=== PATIENT | female | born 1985 | race African-American/Black ===

== ENCOUNTER 2016-09-08 01:18 | Emergency (ER) | payer MEDICARE ==
[~2016-09-08 01:18] MED LIST: IBUP-1060 PO; IBUP200T43 PO; METR500T PO; PREN1TAB58 PO
[2016-09-08 01:24] VITALS: BP 140/88
[2016-09-08] MEDS ORDERED: ONDANSETRON ODT 4 MG TAB.RAPDIS ONE (01:28)
[2016-09-08] MEDS ORDERED: ONDANSETRON ODT 4 MG TAB.RAPDIS PO ONE (01:45)
[2016-09-08 02:47] LABS: BILIRUBIN,URINE NEGATIVE (NEG); GLUCOSE,URINE NEGATIVE (NEG); NITRITE,URINE NEGATIVE (NEG); PROTEIN,URINE NEGATIVE (NEG-TRACE); UROBILINOGEN,URINE 0.2 mg/dL (0.2 mg/dL)
[2016-09-08 02:48] LABS: NEG OBC UR NEG; POS OBC UR POS
[2016-09-08 02:53] LABS: BACTERIA,URINE 0 /HPF (0-FEW); RBC,URINE 0 /HPF (0-2); SQUAMOUS EPITHELIAL CELL,UR FEW /LPF; WBC,URINE OCC /HPF (0-4)
[2016-09-08 02:59] LABS: BARBITURATES NEG (NEG); BENZODIAZEPINES NEG (NEG); CANNABINOIDS POS (NEG); COCAINE NEG (NEG); METHADONE NEG (NEG); OPIATES NEG (NEG); PHENCYCLIDINE NEG (NEG)
[2016-09-08 03:00] LABS: ETHANOL, URINE NEG (NEG)
--- NOTE | 2016-09-08 03:14 | PHYS DOC ---
Past Medical History Past Medical History: Other Additional Past Medical Histor: genital herpes,enlarged liver,HEART MURMUR,HPV, ectopic , psychosis Past Surgical History: Other Additional Past Surgical Histo: GENITAL WARTS REMOVED, ectopic preg surgery Alcohol Use: Occasionally Drug Use: None Adult General Chief Complaint Chief Complaint: ABSCESS HPI HPI 30 yo female presenting with a variety of complaints who is at an estimated 14 weeks gestation who presents with some mild labial swelling and yeast like discharge that has been present for weeks to months. She denies any fever or chills. She denies any vaginal bleeding or discharge. She denies any abdominal pain. She denies any chest pain or SOB. Review of Systems Review of Systems Constitutional: Denies fever or chills [] Eyes: Denies change in visual acuity, redness, or eye pain [] HENT: Denies nasal congestion or sore throat [] Respiratory: Denies cough or shortness of breath [] Cardiovascular: No additional information not addressed in HPI [] GI: Denies abdominal pain, nausea, vomiting, bloody stools or diarrhea [] : Denies dysuria or hematuria [] Musculoskeletal: Denies back pain or joint pain [] Integument: Denies rash or skin lesions [] Neurologic: Denies headache, focal weakness or sensory changes [] Endocrine: Denies polyuria or polydipsia [] Current Medications Current Medications Current Medications Medications (Trade) Dose Ordered Sig/Salome Start Time Stop Time Status Last Admin Dose Admin Ondansetron HCl (Zofran Odt) 4 mg 1X ONCE 09/08/16 01:45 09/08/16 01:46 DC 09/08/16 01:41 4 MG Allergies Allergies Allergies Coded Allergies Type Severity Reaction Last Updated Verified dextrose Adverse Reaction Intermediate nausea and vomiting 08/10/15 Yes fructose Adverse Reaction Intermediate nausea and vomiting 08/10/15 Yes metronidazole Adverse Reaction Intermediate Nausea and Vomiting 10/03/14 No promethazine Adverse Reaction Intermediate nausea 10/03/14 No Physical Exam Physical Exam Constitutional: Well developed, well nourished, no acute distress, non-toxic appearance. [] HENT: Normocephalic, atraumatic, bilateral external ears normal, oropharynx moist, no oral exudates, nose normal. [] Eyes: PERRLA, EOMI, conjunctiva normal, no discharge. [] Neck: Normal range of motion, no tenderness, supple, no stridor. [] Cardiovascular:Heart rate regular rhythm, no murmur [] Lungs & Thorax: Bilateral breath sounds clear to auscultation [] Abdomen: Bowel sounds normal, soft, no tenderness, no masses, no pulsatile masses. [] Skin: Warm, dry, no erythema, no rash. [] : Mild amount of labial swelling but no fluctuance or obvious abscess formation, there is minimal yeast seen, external view only Back: No tenderness, no CVA tenderness. [] Extremities: No tenderness, no cyanosis, no clubbing, ROM intact, no edema. [] Neurologic: Alert and oriented X 3, normal motor function, normal sensory function, no focal deficits noted. [] Psychologic: Affect normal, judgement normal, mood normal. [] Current Patient Data Vital Signs Vital Signs Date Time Temp Pulse Resp B/P Pulse Ox O2 Delivery O2 Flow Rate FiO2 09/08/16 01:24 98.1 88 18 98 Room Air 98.1 Lab Values Laboratory Tests Test 09/08/16 02:35 Urine Collection Type Unknown Urine Color Yellow Urine Clarity Clear Urine pH 6.0 Urine Specific [place] 1.020 Urine Protein Negativemg/dL (NEG-TRACE) Urine Glucose (UA) Negativemg/dL (NEG) Urine Ketones (Stick) Negativemg/dL (NEG) Urine Blood Negative (NEG) Urine Nitrite Negative (NEG) Urine Bilirubin Negative (NEG) Urine Urobilinogen Dipstick 0.2mg/dL (0.2 mg/dL) Urine Leukocyte Esterase Negative (NEG) Urine RBC 0/HPF (0-2) Urine WBC Occ/HPF (0-4) Urine Squamous Epithelial Cells Few/LPF Urine Bacteria 0/HPF (0-FEW) Urine Mucus Mod/LPF Urine Test Positive (NEG) Urine Opiates Screen Neg (NEG) Urine Methadone Screen Neg (NEG) Urine Barbiturates Neg (NEG) Urine Phencyclidine Screen Neg (NEG) Urine Amphetamine/Methamphetamine Neg (NEG) Urine Benzodiazepines Screen Neg (NEG) Urine Cocaine Screen Neg (NEG) Urine Cannabinoids Screen Pos (NEG) Urine Ethyl Alcohol Neg (NEG) EKG EKG [] Radiology/Procedures Radiology/Procedures Informal bedside ultrasound demonstrated a viable IUP with good motion and heartbeat. Course & Med Decision Making Course & Med Decision Making Pertinent Labs and Imaging studies reviewed. (See chart for details) This 30-year-old female with known psychiatric issues presents with a variety of vaginal complaints. Ultimately her vaginal exam did not reveal any acute issues. Urinalysis was negative for any signs of infection. Her tox screen was negative. I'll be discharging her with strict instruction follow-up with her OB doctor in the next several days for her ongoing issues and for her . Dragon Disclaimer Dragon Disclaimer This electronic medical record was generated, in whole or in part, using a voice recognition dictation system. Departure Departure Impression: Primary Impression: Vaginal discharge Additional Impression: Swelling of labia Disposition: 01 HOME, SELF-CARE Admitting Physician: Other Condition: STABLE Referrals: NO PCP (PCP) Patient Instructions: Additional Instructions: Please follow up closely with your OBGYN in the next 2-3 days for your . Return to the ER if you develop any worsening of your symptoms. Problem Qualifiers PETE LAYNE DO Sep 08, 2016 03:14
== END 2016-09-08 03:30 | disposition home or self-care (01) ==
LOC: ER 01:18
DX: O99.89 Other specified diseases and conditions complicating pregnancy, childbirth and the puerperium (principal); N89.8 Other specified noninflammatory disorders of vagina; R22.2 Localized swelling, mass and lump, trunk; R16.0 Hepatomegaly, not elsewhere classified; Z3A.14 14 weeks gestation of pregnancy; Z88.1 Allergy status to other antibiotic agents; Z88.8 Allergy status to other drugs, medicaments and biological substances
CPT/HCPCS: 81001; 81025; 99285; G0481; Q0162; 99284

== ENCOUNTER 2016-09-13 22:08 | Emergency (ER) | payer MEDICARE ==
[~2016-09-13] VITALS: Ht 157.5 cm; Wt 74.8 kg
[2016-09-13 22:31] VITALS: BP 121/70
[2016-09-13] MEDS ORDERED: ERYT1OIN6 OS (23:11)
--- NOTE | 2016-09-13 23:12 | PHYS DOC ---
Past Medical History Past Medical History: Other Additional Past Medical Histor: genital herpes,enlarged liver,HEART MURMUR,HPV, ectopic , psychosis Past Surgical History: Other Additional Past Surgical Histo: GENITAL WARTS REMOVED, ectopic preg surgery Smokin Pack Per Day Alcohol Use: Occasionally Drug Use: Marijuana Adult General Chief Complaint Chief Complaint: EYE PROBLEMS [facility] HPI Patient is a 30 year old female with history of psychiatric problems who presents with report of left eye stye as well as other bizarre complaints. She states that the stye has caused drainage from the eye without matting, vision changes, or fever. The rest of her complaints appear to be chronic or unfounded. She states that the great toe of her right foot "has rod in it after kicking the rod tray when I fell off the bar stool in 2009." She believes her toe has spread pain to the rest of her body. She does not have a PCP. Review of Systems Review of Systems Constitutional: Denies fever or chills. [] Eyes: Denies change in visual acuity, redness, or eye pain. Reports left eye stye. HENT: Denies ear pain, nasal congestion or sore throat. [] Respiratory: Denies cough or shortness of breath. [] Cardiovascular: Denies chest pain, palpitations or edema. [] GI: Denies abdominal pain, nausea, vomiting, bloody stools or diarrhea. [] : Denies dysuria, hematuria or urinary frequency. [] Musculoskeletal: Denies back pain or joint pain. Reports right great toe pain, chronic. Integument: Denies rash or skin lesions. [] Neurologic: Denies headache, focal weakness or sensory changes. [] Endocrine: Denies polyuria or polydipsia. [] Psych: Denies anxiety or depression. [] All systems reviewed and negative unless otherwise stated in the HPI. Allergies Allergies Allergies Coded Allergies Type Severity Reaction Last Updated Verified NSAIDS (Non-Steroidal Anti-Inflamma Allergy Unknown 09/13/16 Yes Penicillins Allergy Unknown 09/13/16 Yes clindamycin Allergy Unknown 09/13/16 Yes dextrose Adverse Reaction Intermediate nausea and vomiting 08/10/15 Yes fructose Adverse Reaction Intermediate nausea and vomiting 08/10/15 Yes metronidazole Adverse Reaction Intermediate Nausea and Vomiting 10/03/14 No promethazine Adverse Reaction Intermediate nausea 10/03/14 No Physical Exam Physical Exam Constitutional: Well developed, well nourished, no acute distress, non-toxic appearance. [] HENT: Normocephalic, atraumatic, bilateral external ears normal, oropharynx moist, no oral exudates, nose normal. [] Eyes: PERRLA, EOMI, conjunctiva normal, no discharge. There is an internal hordeolum of the left upper eyelid without conjunctival injection or drainage. Skin: Warm, dry, no erythema, no rash. There is no laceration, abrasion, ecchymosis, or other external signs of injury of the right foot. There is onychomycosis of the great toenail on the right foot. Extremities: No tenderness, no cyanosis, no clubbing, ROM intact, no edema. [] Neurologic: Alert and oriented X 3, normal motor function, normal sensory function, no focal deficits noted. [] Psychologic: Bizarre affect with schizoid tendency, mood normal. [] Current Patient Data Vital Signs Vital Signs Date Time Temp Pulse Resp B/P Pulse Ox O2 Delivery O2 Flow Rate FiO2 09/13/16 22:31 98.4 83 18 100 Room Air 98.4 EKG EKG [] Radiology/Procedures Radiology/Procedures [] Course & Med Decision Making Course & Med Decision Making Pertinent Labs and Imaging studies reviewed. (See chart for details) [] Dragon Disclaimer Dragon Disclaimer This electronic medical record was generated, in whole or in part, using a voice recognition dictation system. Departure Departure Impression: Primary Impression: Hordeolum internum left upper eyelid Disposition: 01 HOME, SELF-CARE Condition: STABLE Referrals: NO PCP (PCP) Patient Instructions: Sty Additional Instructions: Please use the prescribed antibiotic ointment as directed. Please follow up with the eye doctor listed below if you have any worsening of your eye. Return to the emergency department if you have any new or concerning symptoms. Scripts Erythromycin Base (Erythromycin)3.5 Gm Oint...g.1 Noe OS BID 7 Days Prov:KAREN SAAVEDRA 09/13/16 KAREN SAAVEDRA Sep 13, 2016 23:11
== END 2016-09-13 23:18 | disposition home or self-care (01) ==
LOC: ER 22:08
DX: H00.024 Hordeolum internum left upper eyelid (principal); B35.1 Tinea unguium; G89.29 Other chronic pain; F12.10 Cannabis abuse, uncomplicated; F17.210 Nicotine dependence, cigarettes, uncomplicated; R16.0 Hepatomegaly, not elsewhere classified; Z88.6 Allergy status to analgesic agent; Z88.1 Allergy status to other antibiotic agents; Z88.0 Allergy status to penicillin; Z88.8 Allergy status to other drugs, medicaments and biological substances
CPT/HCPCS: 99283

== ENCOUNTER 2016-10-25 20:08 | Emergency (ER) | payer MEDICARE ==
[~2016-10-25] VITALS: Ht 152.4 cm; Wt 79.4 kg
[~2016-10-25 20:08] MED LIST changes: +ERYT1OIN6 OS
[2016-10-25 20:24] VITALS: BP 113/61
--- NOTE | 2016-10-25 21:29 | PHYS DOC ---
Past Medical History Past Medical History: Other Additional Past Medical Histor: genital herpes,enlarged liver,HEART MURMUR,HPV, ectopic , psychosis Past Surgical History: Other Additional Past Surgical Histo: GENITAL WARTS REMOVED, ectopic preg surgery Alcohol Use: None Drug Use: None, Marijuana Adult General Chief Complaint Chief Complaint: VAGINAL PROBLEM HPI HPI Patient is a 30 year old female with complaint of an abscess in her private area that been present for at least a week. Patient states is been draining for the past 2-3 days. Patient states that she has not she denies any other region quite some time. Patient denies history of recurring skin infections. She denies antibiotic use within the past 30 days. Patient is . She reports that she's approximate 17 weeks . She states that she is due to see her tutorial laboratory supervisor at [facility] tomorrow. Patient denies pelvic pain, abdominal pain, vaginal bleeding, vaginal discharge or dysuria. Review of Systems Review of Systems Constitutional: Denies fever or chills [] Eyes: Denies change in visual acuity, redness, or eye pain [] HENT: Denies nasal congestion or sore throat [] Respiratory: Denies cough or shortness of breath [] Cardiovascular: No additional information not addressed in HPI [] GI: Denies abdominal pain, nausea, vomiting, bloody stools or diarrhea [] : Denies dysuria or hematuria [] Musculoskeletal: Denies back pain or joint pain [] Integument: Denies rash or skin lesions [] Neurologic: Denies headache, focal weakness or sensory changes [] Endocrine: Denies polyuria or polydipsia [] Current Medications Current Medications Current Medications Medications (Trade) Dose Ordered Sig/[facility] Start Time Stop Time Status Last Admin Dose Admin Lidocaine/Sodium Bicarbonate (Buffered Lidocaine 1%) 20 ml STK-MED ONCE 10/25/16 21:31 10/25/16 21:32 DC Allergies Allergies Allergies Coded Allergies Type Severity Reaction Last Updated Verified NSAIDS (Non-Steroidal Anti-Inflamma Allergy Unknown 09/13/16 Yes Penicillins Allergy Unknown 09/13/16 Yes clindamycin Allergy Unknown 09/13/16 Yes dextrose Adverse Reaction Intermediate nausea and vomiting 08/10/15 Yes fructose Adverse Reaction Intermediate nausea and vomiting 08/10/15 Yes metronidazole Adverse Reaction Intermediate Nausea and Vomiting 10/03/14 No promethazine Adverse Reaction Intermediate nausea 3/20/15 No Physical Exam Physical Exam Constitutional: Well developed, well nourished, no acute distress, non-toxic appearance. [] HENT: Normocephalic, atraumatic, bilateral external ears normal, oropharynx moist, no oral exudates, nose normal. [] Eyes: PERRLA, EOMI, conjunctiva normal, no discharge. [] Neck: Normal range of motion, no tenderness, supple, no stridor. [] Cardiovascular:Heart rate regular rhythm, no murmur [] Lungs & Thorax: Bilateral breath sounds clear to auscultation [] Abdomen: Bowel sounds normal, soft, no tenderness, no masses, no pulsatile masses. Abdomen is gravid. heart tones were 152. Patient has a cutaneous abscess lateral to her right labia majora. It appears to be due to hypertrophic boiler sweat glands in the area. It is opened minimally with active mucopurulent drainage. There is no palpable sinus tracts. There is no swelling to the labia majora or minora. Skin: Warm, dry, no erythema, no rash. [] Back: No tenderness, no CVA tenderness. [] Extremities: No tenderness, no cyanosis, no clubbing, ROM intact, no edema. [] Neurologic: Alert and oriented X 3, normal motor function, normal sensory function, no focal deficits noted. [] Psychologic: Affect normal, judgement normal, mood normal. [] Current Patient Data Vital Signs Vital Signs Date Time Temp Pulse Resp B/P Pulse Ox O2 Delivery O2 Flow Rate FiO2 10/25/16 20:24 99.5 82 16 99 Room Air 99.5 EKG EKG [] Radiology/Procedures Radiology/Procedures Procedure note: 1.5 cm indurated cutaneous abscess to the right labia majora was anesthetized with buffered 1% lidocaine. Site was prepped with Betadine. Abscess was incised with 11 blade scalpel with immediate expression of mucopurulent material. Abscess was compressed until there is no longer mucopurulent drainage. Abscess was packed with quarter-inch packing. Patient tolerated the procedure well. Course & Med Decision Making Course & Med Decision Making Pertinent Labs and Imaging studies reviewed. (See chart for details) [] Dragon Disclaimer Dragon Disclaimer This electronic medical record was generated, in whole or in part, using a voice recognition dictation system. Departure Departure Impression: Primary Impression: Abscess Disposition: 01 HOME, SELF-CARE Condition: IMPROVED Referrals: NO PCP (PCP) Patient Instructions: Abscess, Care After, Abscess, [id number] Additional Instructions: 1. Take the medication as prescribed. 2. Review the discharge instructions provided for self-care and reasons to return to the emergency department. 3. Follow-up with your tutorial laboratory supervisor at [facility] tomorrow as planned. Follow the instructions from there on for how to care for your abscess. Scripts Hydrocodone/Apap 5-325 ([place] 5-325 Tablet)1 Each Tablet1 Tab PO PRN Q6HRS PRN PAIN #10 TAB Prov:STANLEY FLORES 10/25/16 Sulfamethoxazole/Trimethoprim (Bactrim Ds Tablet)1 Each Tablet1 Each PO BID #20 TAB Prov:STANLEY FLORES 10/25/16 STANLEY FLORES Oct 25, 2016 21:29
[2016-10-25] MEDS ORDERED: LIDOCAINE 1% / SOD BICARB 8.4% 20 ML VIAL. IJ ONE ×2 (21:31→21:45)
[2016-10-25] MEDS ORDERED: SULF1TAB24 PO (21:36)
[2016-10-25] MEDS ORDERED: HYDR-971 PO (21:36)
== END 2016-10-25 22:06 | disposition home or self-care (01) ==
LOC: ER 20:08
DX: O23.592 Infection of other part of genital tract in pregnancy, second trimester (principal); N76.4 Abscess of vulva; Z3A.17 17 weeks gestation of pregnancy; F12.10 Cannabis abuse, uncomplicated; Z88.6 Allergy status to analgesic agent; Z88.1 Allergy status to other antibiotic agents; Z88.8 Allergy status to other drugs, medicaments and biological substances; Z91.018 Allergy to other foods; Z88.0 Allergy status to penicillin
CPT/HCPCS: 56405; 99284-25

== ENCOUNTER 2017-06-21 00:20 | Emergency (ER) | payer MEDICARE ==
[~2017-06-21] VITALS: Ht 157.5 cm; Wt 79.4 kg
[~2017-06-21 00:20] MED LIST changes: +HYDR-971 PO; -IBUP200T43 PO; +IBUP200T44 PO; +SULF1TAB24 PO
--- NOTE | 2017-06-21 00:38 | PHYS DOC ---
Past Medical History Past Medical History: Other Additional Past Medical Histor: genital herpes,enlarged liver,HEART MURMUR,HPV, ectopic , psychosis Past Surgical History: Other Additional Past Surgical Histo: GENITAL WARTS REMOVED, ectopic preg surgery Alcohol Use: None Drug Use: None, Marijuana Adult General Chief Complaint Chief Complaint: ABDOMINAL PAIN HPI HPI Patient is a 31 year old -Greek Greek female who presents with vaginal discharge. She states 2 weeks ago she was diagnosed with at [facility]. She states she's been having some pain in her left paraspinal back. She states she also has a hernia in her bellybutton area. She denies any fevers chills nausea or vomiting. She is concerned because she is having a vaginal discharge is been going on for last several days. She states she's had a labial abscess in the past. She is wants to make sure everything's okay. Review of Systems Review of Systems Constitutional: Denies fever or chills [] Eyes: Denies change in visual acuity, redness, or eye pain [] HENT: Denies nasal congestion or sore throat [] Respiratory: Denies cough or shortness of breath [] Cardiovascular: No additional information not addressed in HPI [] GI: Denies abdominal pain, nausea, vomiting, bloody stools or diarrhea [] : Denies dysuria or hematuria [] Musculoskeletal: Denies back pain or joint pain [] Integument: Denies rash or skin lesions [] Neurologic: Denies headache, focal weakness or sensory changes [] Endocrine: Denies polyuria or polydipsia [] All other systems were reviewed and found to be within normal limits, except as documented in this note. Allergies Allergies Allergies Coded Allergies Type Severity Reaction Last Updated Verified NSAIDS (Non-Steroidal Anti-Inflamma Allergy Unknown 09/13/16 Yes Penicillins Allergy Unknown 09/13/16 Yes clindamycin Allergy Unknown 09/13/16 Yes dextrose Adverse Reaction Intermediate nausea and vomiting 08/10/15 Yes fructose Adverse Reaction Intermediate nausea and vomiting 08/10/15 Yes metronidazole Adverse Reaction Intermediate Nausea and Vomiting 10/03/14 No promethazine Adverse Reaction Intermediate nausea 10/03/14 No Physical Exam Physical Exam Constitutional: Well developed, well nourished, no acute distress, non-toxic appearance. [] HENT: Normocephalic, atraumatic, bilateral external ears normal, oropharynx moist, no oral exudates, nose normal. [] Eyes: PERRLA, EOMI, conjunctiva normal, no discharge. [] Neck: Normal range of motion, no tenderness, supple, no stridor. [] Cardiovascular:Heart rate regular rhythm, no murmur [] Lungs & Thorax: Bilateral breath sounds clear to auscultation [] Abdomen/ genital: Bowel sounds normal, soft, no tenderness, no masses, no pulsatile masses. Normal external genitalia, no pelvic tenderness appreciated, no vaginal bleeding or discharge, patient did not tolerate speculum exams blind sweep swabs were performed Skin: Warm, dry, no erythema, no rash. [] Back: No midline back tenderness, mild tender palpation in the left lower paraspinal back, no CVA tenderness. [] Extremities: No tenderness, no cyanosis, no clubbing, ROM intact, no edema. [] Neurologic: Alert and oriented X 3, normal motor function, normal sensory function, no focal deficits noted. [] Psychologic: Affect normal, judgement normal, mood normal. [] Current Patient Data Vital Signs Vital Signs Date Time Temp Pulse Resp B/P (MAP) Pulse Ox O2 Delivery O2 Flow Rate FiO2 06/21/17 00:42 98.3 70 18 133/89 (104) 100 Room Air 98.3 Lab Values Laboratory Tests Test 06/21/17 00:41 06/21/17 00:42 Urine Collection Type Unknown Urine Color Yellow Urine Clarity Clear Urine pH 6.0 Urine Specific [place] 1.015 Urine Protein Negative mg/dL (NEG-TRACE) Urine Glucose (UA) Negative mg/dL (NEG) Urine Ketones (Stick) Negative mg/dL (NEG) Urine Blood Negative (NEG) Urine Nitrite Negative (NEG) Urine Bilirubin Negative (NEG) Urine Urobilinogen Dipstick 0.2 mg/dL (0.2 mg/dL) Urine Leukocyte Esterase Trace (NEG) Urine RBC Occ /HPF (0-2) Urine WBC 1-4 /HPF (0-4) Urine Squamous Epithelial Cells Few /LPF Urine Bacteria Few /HPF (0-FEW) Urine Mucus Slight /LPF POC Urine HCG, Qualitative Hcg positive (Negative) Microbiology 06/21/17 Wet Prep - Final, Complete Microbiology 06/21/17 Wet Prep - Final, Complete EKG EKG [] Radiology/Procedures Radiology/Procedures RUN DATE: 06/21/17 PAGE 1 RUN TIME: 127 [facility] [address] [place] [address] Lee Cha M.D., [facility] PATIENT: ARSEN TRUONG ACCT: [id number] LOC: [facility] U : [id number] AGE/SX: 31/ ROOM: REG : 06/21/[address]: RASHID MCKEON MD : 1985 BED: DIS : STATUS: REG ER TLOC: SPEC #: [id number] CHEKO: 06/21/17 STATUS: COMP REQ #: [id number] RECD: 06/21/[address]: RASHID MCKEON MD SOURCE: VAGINAL ENTR: 06/21/[address]: KATHY QUINONES SPDESC: ORDERED: WET PREP COMMENTS: Has specimen been collected/obtained? Y Procedure Result WET PREP Final YEAST NONE SEEN TRICHOMONAS NONE SEEN CLUE CELLS NONE SEEN WBCS FEW SQUAMOUS EPS FEW END OF REPORT [facility] [address] [place] [address] IMAGING REPORT Signed PATIENT: ARSEN TRUONG ACCOUNT: [id number] : 1985 LOCATION: ER AGE: 31 SEX: F EXAM STATUS: REG ER ORD. PHYSICIAN: RASHID MCKEON MD REASON: abd pain PROCEDURE: PREG 1ST TRIMESTER INDICATION: PELVIC PAIN COMPARISON: None. TECHNIQUE: Grayscale and color ultrasound images uterus and adnexa. Patient declined transvaginal examination. FINDINGS: Uterus: 130 x 82 x 74 mm. Endometrial Stripe: 19 mm. Cystic structure within the endometrial stripe measuring 24 x 6 mm Right Ovary: 42 x 24 x 20 mm. Left Ovary: 37 x 21 x 17 mm. Vascular flow identified to bilateral ovaries. Hypoechoic lesion in right ovary measuring 22 x 17 mm. IMPRESSION: 1. Cystic structure is seen within the endometrial stripe with an irregular shape. There is no definite yolk sac or pole seen at this time. This could be secondary to an early gestational sac but follow-up will be needed to ensure development of a pole and ensure that this is not from a pseudogestational sac. 2. Hypoechoic structure seen at the right ovary. Could be from causes such as a hemorrhagic cyst or endometrioma but follow-up could be obtained to ensure no growth of this structure given the nonspecific appearance. Electronically signed by: Rich Rosenberg MD (06/21/2017 2:28 AM) [facility] DICTATED and SIGNED BY: RICH ROSENBERG MD DATE: 06/21/17221 CC: RASHID MCKEON MD; UNKNOWN PCP NAME ~ Impressions: Back pain Bacteriuria in Dental pain Course & Med Decision Making Course & Med Decision Making Pertinent Labs and Imaging studies reviewed. (See chart for details) Ultrasound was performed and is noted as above. She does have additional care in the right upper tooth #1 and is broken off. I do not appreciate any abscesses that she's talking about in her labial areas. She's being discharged with nitrofurantoin and instructed use Tylenol for dental pain. She is to follow -up with a dentist. Information is been given to her about dentists in the area. She is to follow-up with OB, she is agreeable to the plan and being discharged in stable condition. Dragon Disclaimer Dragon Disclaimer This electronic medical record was generated, in whole or in part, using a voice recognition dictation system. Departure Departure Impression: Primary Impression: Back pain Disposition: HOME, SELF-CARE Condition: STABLE Referrals: NO PCP (PCP) YAMILE BURRIS MD Patient Instructions: Dental Abscess, - Urinary Tract Infection Additional Instructions: Your ultrasound shows that you might have an early . You need to have a repeat ultrasound to confirm this, you can follow-up with Dr. Connor. You have bacterial your urinary need take antibiotics for the next 10 days. The same antibiotics for work for your abscess and tooth infection. Return back to ER if you have severe abdominal pain, bleeding, fevers, troubles breathing, or other concerns. Do not use Advil, or Aleve while your . You can use Tylenol for any pain you might have. Scripts Vit37/Iron/Folic Acid (PRENATA CHEWABLE TABLET) 1 Each Tab.chew 1 EACH PO DAILY for 30 Days, #30 TAB.CHEW Prov: RASHID MCKEON MD 06/21/17 Nitrofurantoin Monohyd/M-Cryst (MACROBID 100 MG CAPSULE) 100 Mg Capsule 1 CAP PO BID, #14 CAP Prov: RASHID MCKEON MD 06/21/17 RASHID MCKEON MD Jun 21, 2017 00:38
[2017-06-21 00:42] VITALS: BP 133/89
[2017-06-21 00:51] LABS: BILIRUBIN,URINE NEGATIVE (NEG); GLUCOSE,URINE NEGATIVE (NEG); NITRITE,URINE NEGATIVE (NEG); PROTEIN,URINE NEGATIVE (NEG-TRACE); UROBILINOGEN,URINE 0.2 mg/dL (0.2 mg/dL)
[2017-06-21 01:08] LABS: BACTERIA,URINE FEW /HPF (0-FEW); RBC,URINE OCC /HPF (0-2); SQUAMOUS EPITHELIAL CELL,UR FEW /LPF
--- NOTE | 2017-06-21 02:31 | RAD ---
INDICATION: PELVIC PAIN COMPARISON: None. TECHNIQUE: Grayscale and color ultrasound images uterus and adnexa. Patient declined transvaginal examination. FINDINGS: Uterus: 130 x 82 x 74 mm. Endometrial Stripe: 19 mm. Cystic structure within the endometrial stripe measuring 24 x 6 mm Right Ovary: 42 x 24 x 20 mm. Left Ovary: 37 x 21 x 17 mm. Vascular flow identified to bilateral ovaries. Hypoechoic lesion in right ovary measuring 22 x 17 mm. IMPRESSION: 1. Cystic structure is seen within the endometrial stripe with an irregular shape. There is no definite yolk sac or pole seen at this time. This could be secondary to an early gestational sac but follow-up will be needed to ensure development of a pole and ensure that this is not from a pseudogestational sac. 2. Hypoechoic structure seen at the right ovary. Could be from causes such as a hemorrhagic cyst or endometrioma but follow-up could be obtained to ensure no growth of this structure given the nonspecific appearance. Electronically signed by: Julian Rosenberg MD (06/21/2017 2:28 AM) [id number]
[2017-06-21] MEDS ORDERED: NITR100C62 PO (03:34)
[2017-06-21] MEDS ORDERED: PREN1TAB60 PO (04:21)
== END 2017-06-21 03:54 | disposition home or self-care (01) ==
LOC: ER 00:20
DX: O26.891 Other specified pregnancy related conditions, first trimester (principal); R82.71 Bacteriuria; M54.89 Other dorsalgia; K08.89 Other specified disorders of teeth and supporting structures; O99.341 Other mental disorders complicating pregnancy, first trimester; F29 Unspecified psychosis not due to a substance or known physiological condition; Z3A.00 Weeks of gestation of pregnancy not specified; Z88.0 Allergy status to penicillin; Z88.1 Allergy status to other antibiotic agents; Z88.6 Allergy status to analgesic agent; Z88.8 Allergy status to other drugs, medicaments and biological substances
CPT/HCPCS: 76801; 81001; 81025; 87086; 87491; 87591; 99285; Q0111

== ENCOUNTER 2017-08-29 22:25 | Emergency (ER) | payer MEDICARE ==
[2017-08-29 23:05] LABS: URINE HCG POC HCG POSITIVE (Negative)
[2017-08-29 23:06] LABS: BILIRUBIN,URINE SMALL (NEG); CLARITY,URINE CLEAR; COLOR,URINE YELLOW; GLUCOSE,URINE NEGATIVE (NEG); NITRITE,URINE NEGATIVE (NEG); PH,URINE 5.5; PROTEIN,URINE NEGATIVE (NEG-TRACE); UROBILINOGEN,URINE 0.2 mg/dL (0.2 mg/dL)
[2017-08-29 23:12] LABS: BACTERIA,URINE FEW /HPF (0-FEW); RBC,URINE >40 /HPF (0-2); WBC,URINE OCC /HPF (0-4)
[2017-08-29 23:13] LABS: SQUAMOUS EPITHELIAL CELL,UR MOD /LPF; TRICHOMONAS,URINE PRESENT
[2017-08-29] MEDS: ACETAMINOPHEN 325 MG TABLET. PO ×2 (23:26)
[2017-08-30] MEDS: METOCLOPRAMIDE 10 MG TABLET. PO ×2 (00:45)
[2017-08-30] MEDS: AZITHROMYCIN 250 MG TABLET. PO ×2 (01:49)
[2017-08-30] MEDS: GENTAMICIN SULFATE 240 MG in IV NORMAL SALINE 100ML 100 ML IV (01:49)
[2017-08-30] MEDS: metroNIDAZOLE 500 MG TABLET PO ×2 (01:53)
[2017-08-31 18:14] LABS: CHLAMYDIA PROBE Negative (Negative); GC PROBE Negative (Negative)
== END 2017-08-30 03:00 | disposition home or self-care (01) ==
LOC: ER 08-30 03:00
DX: O23.42 Unspecified infection of urinary tract in pregnancy, second trimester (principal); O98.312 Other infections with a predominantly sexual mode of transmission complicating pregnancy, second trimester; B96.89 Other specified bacterial agents as the cause of diseases classified elsewhere; A59.01 Trichomonal vulvovaginitis; O26.892 Other specified pregnancy related conditions, second trimester; M54.30 Sciatica, unspecified side; Z3A.15 15 weeks gestation of pregnancy; Z88.6 Allergy status to analgesic agent; Z88.1 Allergy status to other antibiotic agents; Z88.0 Allergy status to penicillin; Z88.8 Allergy status to other drugs, medicaments and biological substances
CPT/HCPCS: 76805; 81001; 81025; 87086; 87491; 87591; 96365; 99285-25; J1580; Q0111; Q0144

== ENCOUNTER 2018-09-03 | Observation (INO) | payer MEDICARE, OTHER ==
[2017-08-30 05:34] VITALS: BP 112/61
[~2018-09-03] MED LIST changes: +HYDR-3164 PO; -HYDR-971 PO; +METO10TA81 PO; +NITR100C62 PO; +PREN1TAB60 PO
[2018-09-03 01:04] LABS: BILIRUBIN,URINE NEGATIVE (NEG); CLARITY,URINE CLEAR; COLOR,URINE YELLOW; NITRITE,URINE NEGATIVE (NEG); PROTEIN,URINE NEGATIVE (NEG-TRACE); UROBILINOGEN,URINE 0.2 mg/dL (0.2 mg/dL)
[2018-09-03 01:09] LABS: BARBITURATES NEG (NEG); BENZODIAZEPINES NEG (NEG); CANNABINOIDS POS (NEG); COCAINE NEG (NEG); METHADONE NEG (NEG); OPIATES NEG (NEG); PHENCYCLIDINE POS (NEG)
[2018-09-03 01:12] LABS: AMPHETAMINE/METHAMPHETAMINE NEG (NEG)
[2018-09-03 01:14] LABS: BACTERIA,URINE FEW /HPF (0-FEW); RBC,URINE OCC /HPF (0-2)
[2018-09-03 01:15] LABS: SQUAMOUS EPITHELIAL CELL,UR MOD /LPF
[2018-09-03 02:30] LABS: U PREG PATIENT POSITIVE (NEG)
--- NOTE | 2018-09-03 04:15 | RAD ---
INDICATION: VAG BLEEDING, POSITIVE PREG TEST COMPARISON: 08/29/2017 TECHNIQUE: Grayscale and color ultrasound images uterus and adnexa. Transabdominal images obtained. FINDINGS: Uterus: 100 x 92 x 69 mm. Endometrial Stripe: 29 mm. Right Ovary: 26 x 17 x 17 mm. Left Ovary: 39 x 27 x 27 mm. Vascular flow identified to bilateral ovaries. 25 mm hypoechoic lesion left ovary. No intrauterine gestational sac is seen at this time. IMPRESSION: 1. Thickened endometrial stripe without a intrauterine gestational sac seen at this time. 2. Hypoechoic lesion left ovary. Could be from causes such as hemorrhagic cyst or endometrioma and follow-up could be obtained to ensure that this does not increase. Electronically signed by: Julian Rosenberg MD (09/03/2018 4:12 AM) [id number]
== END 2018-09-03 06:00 | disposition home or self-care (01) ==
LOC: 3 SO LND
PROVIDERS: ADMIT Obstetrics & Gynecology; ATTEND Obstetrics & Gynecology
DX: O46.92 Antepartum hemorrhage, unspecified, second trimester (principal); O26.892 Other specified pregnancy related conditions, second trimester; R10.9 Unspecified abdominal pain; Z3A.16 16 weeks gestation of pregnancy
CPT/HCPCS: 76801; 80307; 81001; 81025; 87086; G0378; G0379

== ENCOUNTER 2018-11-16 02:14 | Emergency (ER) | payer MEDICARE, OTHER ==
[~2018-11-16] VITALS: Ht 157.5 cm; Wt 79.4 kg
[2018-11-16 02:27] VITALS: BP 162/98
[2018-11-16 04:20] LABS: U PREG PATIENT NEGATIVE (NEG)
--- NOTE | 2018-11-16 04:22 | PHYS DOC ---
Past Medical History Past Medical History: No Pertinent History Additional Past Medical Histor: genital herpes,enlarged liver,HEART MURMUR,HPV,ectopic , psychosis Past Surgical History: No Surgical History Additional Past Surgical Histo: GENITAL WARTS REMOVED, ectopic preg surgery Alcohol Use: Occasionally Drug Use: Marijuana Adult General Chief Complaint Chief Complaint: Congestion HPI HPI Patient is a 32 year old female presents to the due to chief complaint of cough that is productive. Patient states that the symptoms and present for the last 2 weeks. Patient does admit to being an active smoker. Patient denies fever, chills, nausea, vomiting, diarrhea, dysuria. Review of Systems Review of Systems Constitutional: Denies fever or chills [] Eyes: Denies change in visual acuity, redness, or eye pain [] HENT: Denies nasal congestion or sore throat [] Respiratory: Complains of productive cough Cardiovascular: No additional information not addressed in HPI [] GI: Denies abdominal pain, nausea, vomiting, bloody stools or diarrhea [] : Denies dysuria or hematuria [] Musculoskeletal: Denies back pain or joint pain [] Integument: Denies rash or skin lesions [] Neurologic: Denies headache, focal weakness or sensory changes [] All other systems were reviewed and found to be within normal limits, except as documented in this note. Allergies Allergies Allergies Coded Allergies Type Severity Reaction Last Updated Verified NSAIDS (Non-Steroidal Anti-Inflamma Allergy Intermediate 09/03/18 Yes Penicillins Allergy Intermediate 09/03/18 Yes clindamycin Allergy Intermediate 09/03/18 Yes dextrose Adverse Reaction Intermediate nausea and vomiting 08/10/15 Yes fructose Adverse Reaction Intermediate nausea and vomiting 08/10/15 Yes metronidazole Adverse Reaction Intermediate Nausea and Vomiting 10/03/14 No promethazine Adverse Reaction Intermediate nausea 10/03/14 No Physical Exam Physical Exam Constitutional: Well developed, well nourished, no acute distress, non-toxic appearance. HENT: Normocephalic, atraumatic, normocaphalic Eyes: PERRL, EOMI Neck: Normal range of motion, no tenderness, supple Cardiovascular:Heart rate regular rhythm, no murmur Resp: Bilateral breath sounds clear to auscultation Abdomen: Soft, no tenderness, no distension Skin: Warm, dry, no erythema, no rash. Back: No tenderness, no CVA tenderness. Extremities: No tenderness, ROM intact, no edema. Neurologic: Alert and oriented X 3, normal motor function, normal sensory function, no focal deficits noted. Psychologic: Affect normal, judgement normal, mood normal. Current Patient Data Vital Signs Vital Signs Date Time Temp Pulse Resp B/P (MAP) Pulse Ox O2 Delivery O2 Flow Rate FiO2 11/16/18 02:27 98.5 74 16 162/98 (119) 99 Room Air 98.5 Lab Values Laboratory Tests Test 11/16/18 03:31 Urine Test Negative (NEG) EKG EKG [] Radiology/Procedures Radiology/Procedures PROCEDURE: CHEST PA & LATERAL PROCEDURE: CHEST PA LATERAL CLINICAL INDICATION: cough COMPARISON: None FINDINGS: No pneumothorax identified. Cardiac and mediastinal contours unremarkable. No pulmonary consolidation or acute airspace disease. No acute osseous abnormalities identified. IMPRESSION: No pulmonary consolidation or acute airspace disease. Electronically signed by: Alvaro Gomez DO (11/16/2018 4:39 AM) [facility] Course & Med Decision Making Course & Med Decision Making Pertinent Labs and Imaging studies reviewed. (See chart for details) Urine test is negative. I ordered chest x-ray. Chest x-ray shows no acute disease. Discussed results and plan of care with patient. Patient is instructed to follow up with PCP in one to 2 days. Appropriate discharge instructions given to patient to return to the ED or to seek immediate medical evaluation. Dragon Disclaimer Dragon Disclaimer This electronic medical record was generated, in whole or in part, using a voice recognition dictation system. Departure Departure Referrals: UNKNOWN PCP NAME (PCP) Scripts Prednisone (PREDNISONE) 20 Mg Tablet 2 TAB PO DAILY, #10 TAB Prov: FABIO HIGH DO 11/16/18 FABIO HIGH DO November 16, 2018 04:22
--- NOTE | 2018-11-16 04:42 | RAD ---
PROCEDURE: CHEST PA LATERAL CLINICAL INDICATION: cough COMPARISON: None FINDINGS: No pneumothorax identified. Cardiac and mediastinal contours unremarkable. No pulmonary consolidation or acute airspace disease. No acute osseous abnormalities identified. IMPRESSION: No pulmonary consolidation or acute airspace disease. Electronically signed by: Alvaro Gomez DO (11/16/2018 4:39 AM) [id number]
[2018-11-16] MEDS ORDERED: PRED20TA PO (04:54)
== END 2018-11-16 05:28 | disposition home or self-care (01) ==
LOC: ER 02:14
DX: R05 Cough (principal); F17.200 Nicotine dependence, unspecified, uncomplicated; Z88.0 Allergy status to penicillin; Z88.1 Allergy status to other antibiotic agents; Z88.8 Allergy status to other drugs, medicaments and biological substances; Z91.02 Food additives allergy status
CPT/HCPCS: 71046; 81025; 99285-25

== ENCOUNTER 2020-05-27 20:39 | Emergency (ER) | payer MEDICARE ==
[~2020-05-27] VITALS: Ht 157.5 cm; Wt 76.9 kg
[~2020-05-27 20:39] MED LIST changes: +METR-34 PO; +PRED20TA PO; +TIZA4TAB8 PO
[2020-05-27 21:29] LABS: BILIRUBIN,URINE NEGATIVE (NEG); CLARITY,URINE CLEAR; COLOR,URINE YELLOW; NITRITE,URINE NEGATIVE (NEG); PH,URINE 5.5 (<5.0-8.0); PROTEIN,URINE NEGATIVE (NEG-TRACE); UROBILINOGEN,URINE 0.2 mg/dL (0.2 mg/dL)
[2020-05-27 21:36] LABS: BACTERIA,URINE FEW /HPF (0-FEW); RBC,URINE 0 /HPF (0-2); WBC,URINE OCC /HPF (0-4)
[2020-05-27] MEDS ORDERED: AZITHROMYCIN 250 MG TABLET. PO ONE (21:45)
[2020-05-27] MEDS ORDERED: cefTRIAXone IM 250 MG VIAL IM ONE (21:45)
--- NOTE | 2020-05-27 23:03 | RAD ---
Exam: Left finger 3 views INDICATION: Left third digit pain after fall TECHNIQUE: Frontal view of the hand with oblique and lateral views of the third digit Comparisons: None FINDINGS: Bone mineralization is normal. No acute or healed fractures. Soft tissues are unremarkable. Joint spaces are well-maintained. IMPRESSION: No acute osseous abnormality. Electronically signed by: Jorge Alberto Miller MD (05/27/2020 11:00 PM) [facility]
--- NOTE | 2020-05-27 23:09 | RAD ---
Study: CR KNEE LEFT 3V Indication: Fall. Comparison: None. Findings: No acute fracture. Alignment is anatomic. No large knee joint effusion is readily apparent. Impression: No acute osseous abnormality. Electronically signed by: YANETH HERNANDES MD (05/27/2020 11:06 PM) [id number]
--- NOTE | 2020-05-27 23:11 | RAD ---
Study: CR FOOT RIGHT 3V Indication: Fall. Comparison: 01/01/2019 Findings: No acute fracture. No traumatic malalignment. Joint spaces are maintained. No retained radiopaque foreign body. Impression: No acute osseous abnormality. Electronically signed by: YANETH HERNANDES MD (05/27/2020 11:08 PM) [id number]
--- NOTE | 2020-05-27 23:34 | ED.ADGEN ---
Past Medical History Past Medical History: Ectopic , Other Additional Past Medical Histor: Psychosis Past Surgical History: Additional Past Surgical Histo: GENITAL WARTS REMOVED, ectopic preg surgery Smoking Status: Never Smoker Alcohol Use: None Drug Use: None General Adult EDM: Chief Complaint: MULTIPLE COMPLAINTS HPI: HPI: Patient is a 34 year old AA female who presents to the emergency department via EMS today with multiple complaints after slip and fall while getting onto the bus this evening. Patient reports that when she twisted she fell and she hurt her left middle finger, her right foot near the great toe, and her left knee. She denies any head injury, neck pain, or back pain after the fall. Patient also reports that she has a tender knot near her labia for several days and has had abnormal vaginal discharge for weeks. She denies any abdominal pain, dysuria, hematuria, increased urinary frequency, or vaginal odor. Patient denies any fever, cough, shortness of breath, nausea, or vomiting. She currently rates the pain in her extremities a 4 out of 10 on the pain scale, she denies any alleviating factors, the pain is worse with movement and palpation. Review of Systems: Review of Systems: Complete ROS is negative unless otherwise noted in HPI. Current Medications: Current Medications Medications (Trade) Dose Ordered Sig/Salome Start Time Stop Time Status Last Admin Dose Admin Azithromycin (Zithromax) 1,000 mg 1X ONCE 05/27/20 21:45 05/27/20 21:46 DC 05/27/20 22:11 1,000 MG Ceftriaxone Sodium (Rocephin Im) 250 mg 1X ONCE 05/27/20 21:45 05/27/20 21:46 DC 05/27/20 22:11 250 MG Allergies: Allergies: Allergies Coded Allergies Type Severity Reaction Last Updated Verified NSAIDS (Non-Steroidal Anti-Inflamma Allergy Intermediate 09/03/18 Yes Penicillins Allergy Intermediate 09/03/18 Yes clindamycin Allergy Intermediate 09/03/18 Yes dextrose Adverse Reaction Intermediate nausea and vomiting 08/10/15 Yes fructose Adverse Reaction Intermediate nausea and vomiting 08/10/15 Yes metronidazole Adverse Reaction Intermediate Nausea and Vomiting 10/03/14 No promethazine Adverse Reaction Intermediate nausea 10/03/14 No Physical Exam: PE: See Above Constitutional: Well developed, well nourished, no acute distress, non-toxic appearance. HENT: Normocephalic, atraumatic, bilateral external ears normal, nose normal. Eyes: PERRLA, EOMI, conjunctiva normal, no discharge. Neck: Normal range of motion, no stridor. Cardiovascular: Heart rate regular rhythm Lungs & Thorax: Respirations even and unlabored, no retractions, no respiratory distress Pelvic Exam: [employer] Home [employer] present [employer] Abdomen: Nontender, soft, no palpable mass External Genitalia: Normal Skin Speculum: Normal vaginal mucosa, thick yellow with blood streaks cervical discharge present, cervix nonfriable Bimanual: No adnexal masses or tenderness, No CMT Skin: Warm, dry, no erythema; several raised erythemic areas with centralized pustules each measuring less than half centimeter in diameter consistent with folliculitis noticed to bilateral buttocks Back: No tenderness Extremities: Left third finger: No cyanosis, ROM intact, no edema, No obvious deformity, no crepitus, diffuse tenderness to palpation Left knee: No cyanosis, ROM intact, no edema. No obvious deformity, no crepitus, negative anterior and posterior drawer testing, anterior tenderness to palpation Right foot: No cyanosis, ROM intact, no edema. No obvious deformity, no crepitus, right great toe and medial midfoot tenderness Neurologic: Alert and oriented X 3, no focal deficits noted. Psychologic: Affect normal, judgement normal, mood normal. Current Patient Data: Labs: Laboratory Tests Test 05/27/20 21:20 05/27/20 21:22 Urine Collection Type Unknown Urine Color Yellow Urine Clarity Clear Urine pH 5.5 (<5.0-8.0) Urine Specific [place] 1.025 (1.000-1.030) Urine Protein Negative mg/dL (NEG-TRACE) Urine Glucose (UA) Negative mg/dL (NEG) Urine Ketones (Stick) Negative mg/dL (NEG) Urine Blood Negative (NEG) Urine Nitrite Negative (NEG) Urine Bilirubin Negative (NEG) Urine Urobilinogen Dipstick 0.2 mg/dL (0.2 mg/dL) Urine Leukocyte Esterase Negative (NEG) Urine RBC 0 /HPF (0-2) Urine WBC Occ /HPF (0-4) Urine Squamous Epithelial Cells Few /LPF Urine Bacteria Few /HPF (0-FEW) Urine Mucus Marked /LPF POC Urine HCG, Qualitative Hcg negative (Negative) Microbiology 05/27/20 Wet Prep - Final, Complete Vital Signs: Vital Signs Date Time Temp Pulse Resp B/P (MAP) Pulse Ox O2 Delivery O2 Flow Rate FiO2 05/27/20 23:41 67 146/92 (110) 100 Room Air 05/27/20 21:15 98.4 98.4 EKG: EKG: [] Heart Score: Risk Factors: Risk Factors: DM, Current or recent (<one month) smoker, HTN, HLP, family history of CAD, obesity. Risk Scores: Score 0 - 3: 2.5% MACE over next 6 weeks - Discharge Home Score 4 - 6: 20.3% MACE over next 6 weeks - Admit for Clinical Observation Score 7 - 10: 72.7% MACE over next 6 weeks - Early Invasive Strategies Radiology/Procedures: Radiology/Procedures: PROCEDURE: FINGER(S) LEFT Exam: Left finger 3 views INDICATION: Left third digit pain after fall TECHNIQUE: Frontal view of the hand with oblique and lateral views of the third digit Comparisons: None FINDINGS: Bone mineralization is normal. No acute or healed fractures. Soft tissues are unremarkable. Joint spaces are well-maintained. IMPRESSION: No acute osseous abnormality. PROCEDURE: FOOT RIGHT 3V Study: CR FOOT RIGHT 3V Indication: Fall. Comparison: 01/01/2019 Findings: No acute fracture. No traumatic malalignment. Joint spaces are maintained. No retained radiopaque foreign body. Impression: No acute osseous abnormality. PROCEDURE: KNEE LEFT 3V Study: CR KNEE LEFT 3V Indication: Fall. Comparison: None. Findings: No acute fracture. Alignment is anatomic. No large knee joint effusion is readily apparent. Impression: No acute osseous abnormality. [] Course & Med Decision Making: Course & Med Decision Making Pertinent Labs and Imaging studies reviewed. (See chart for details) Patient was treated prophylactically with 250 mg of IM Rocephin, and 1 g of PO Zithromax. Patient was instructed to avoid having intercourse until the results of gonorrhea and chlamydia testing are available, patient was notified that these results would not be available for 48 hours. If one or both of these tests is positive, patient needs to refrain from intercourse for approximately 1 week following the treatment of any current partners. Wet mount was not concerning for bacterial vaginosis or trichomonas, UA was unremarkable. X-rays of the left third digit, of the left knee, and the right foot were negative for any acute findings or fractures. Prescription was written for mupirocin for the patient's folliculitis on her bilateral buttocks. I encouraged patient to follow-up with her primary care doctor for reevaluation in the next 1 to 2 days, return to the ER symptoms worsen. [] Aleah Disclaimer: Aleah Disclaimer: This electronic medical record was generated, in whole or in part, using a voice recognition dictation system. Departure Departure Impression: Primary Impression: Contact with and (suspected) exposure to infections with a predominantly sexual mode of transmission Additional Impressions: Folliculitis Left anterior knee pain Pain of left middle finger Acute pain of right foot Disposition: DC HOME SELF CARE/HOMELESS Condition: STABLE Referrals: UNKNOWN PCP NAME (PCP) Patient Instructions: Finger Sprain, [id number], Folliculitis, Foot Contusion, [id number], Knee Pain, [id number], Sexually Transmitted Disease, [id number] Additional Instructions: Fill the prescription and use it as directed. You may take Tylenol or ibuprofen as needed for pain. Follow-up with your primary care doctor in 1 to 2 days for reevaluation. Return to the ER if symptoms worsen. Scripts Cyclobenzaprine Hcl (CYCLOBENZAPRINE HCL) 10 Mg Tablet 1 TAB PO TID for 3 Days, #9 TAB 0 Refills Prov: AVEL ADORNO APRN 05/28/20 Acetaminophen (ACETAMINOPHEN) 500 Mg Tablet 2 TAB PO PRN Q6HRS PRN for pain or fever for 15 Days, #60 TAB 0 Refills Prov: AVEL ADORNO APRN 05/28/20 Mupirocin (MUPIROCIN OINTMENT) 22 Gm Oint...g. 1 CHRISTOPHER TP BID for rash. for 7 Days, #1 TUBE 0 Refills Prov: AVEL ADORNO APRN 05/27/20 Problem Qualifiers AVEL ADORNO APRN May 27, 2020 23:34
[2020-05-27] MEDS ORDERED: MUPI22OI2 TP (23:48)
[2020-05-28] MEDS ORDERED: CYCL10TA2 PO (00:07)
[2020-05-28] MEDS ORDERED: ACET500T68 PO (00:07)
[2020-05-28 00:50] VITALS: BP 139/80
== END 2020-05-28 00:50 | disposition home or self-care (01) ==
LOC: ER 20:39
DX: M25.562 Pain in left knee (principal); M79.671 Pain in right foot; L73.9 Follicular disorder, unspecified; M79.605 Pain in left leg; Z98.890 Other specified postprocedural states; Z88.0 Allergy status to penicillin; Z88.1 Allergy status to other antibiotic agents; Z88.8 Allergy status to other drugs, medicaments and biological substances
CPT/HCPCS: 73140; 73562; 73630; 81001; 81025; 87491; 87591; 96372; 99285; J0696; Q0111

== ENCOUNTER 2020-07-24 16:52 | Emergency (ER) | payer MEDICARE ==
[~2020-07-24] VITALS: Ht 157.5 cm; Wt 79.5 kg
[~2020-07-24 16:52] MED LIST changes: +ACET500T68 PO; +CYCL10TA2 PO; +MUPI22OI2 TP
[2020-07-24 18:52] LABS: BILIRUBIN,URINE NEGATIVE (NEG); CLARITY,URINE CLOUDY; COLOR,URINE YELLOW; NITRITE,URINE NEGATIVE (NEG); PH,URINE 7.5 (<5.0-8.0); PROTEIN,URINE NEGATIVE (NEG-TRACE); UROBILINOGEN,URINE 0.2 mg/dL (0.2 mg/dL)
[2020-07-24 19:05] LABS: BASO % 1 % (0-3); EOS % 1 % (0-3); HEMATOCRIT 38.8 % (36.0-47.0); HEMOGLOBIN 12.9 g/dL (12.0-15.5); LYMPH % 24 % (24-48); MEAN CORPUSCULAR HEMOGLOBIN 28 pg (25-35); MEAN CORPUSCULAR HGB CONC 33 g/dL (31-37); MEAN CORPUSCULAR VOLUME 85 fL (79-100); MONO # 0.2 x10^3/uL (0.0-1.1); MONO % 5 % (0-9); NEUT # 2.9 x10^3/uL (1.8-7.7); NEUT % 69 % (31-73); PLATELET COUNT 238 x10^3/uL (140-400); RED BLOOD COUNT 4.57 x10^6/uL (3.50-5.40); RED CELL DISTRIBUTION WIDTH 14.2 % (11.5-14.5); WHITE BLOOD COUNT 4.2 x10^3/uL (4.0-11.0)
[2020-07-24 19:10] LABS: AMORPHOUS SEDIMENT,UR PRESENT /HPF; BACTERIA,URINE FEW /HPF (0-FEW); RBC,URINE 0 /HPF (0-2); WBC,URINE OCC /HPF (0-4)
[2020-07-24 19:23] LABS: CALCIUM 9.3 mg/dL (8.5-10.1); CREATININE 0.6 mg/dL (0.6-1.0); GFR 137.7; POTASSIUM 3.5 mmol/L (3.5-5.1)
[2020-07-24 19:29] LABS: ALBUMIN 3.6 g/dL (3.4-5.0); TOTAL PROTEIN 7.7 g/dL (6.4-8.2)
[2020-07-24 19:30] LABS: ALBUMIN/GLOBULIN RATIO 0.9 (1.0-1.7); TOTAL BILIRUBIN 0.4 mg/dL (0.2-1.0)
[2020-07-24] MEDS ORDERED: CEPH500C PO (19:57)
[2020-07-24] MEDS ORDERED: DOXY100C2 PO (19:57)
--- NOTE | 2020-07-24 19:57 | ED.ADGEN ---
Past Medical History Past Medical History: Ectopic , Other Additional Past Medical Histor: Psychosis Past Surgical History: Additional Past Surgical Histo: GENITAL WARTS REMOVED, ectopic preg surgery Smoking Status: Current Every Day Smoker Alcohol Use: Occasionally Drug Use: None General Adult EDM: Chief Complaint: NAUSEA/VOMITING/DIARRHA HPI: HPI: Patient is 34-year-old female who presents to the emergency room complaining of abdominal pain. She states that it started yesterday. It was in the middle and moved to the right. She does not currently have any abdominal pain. She states that she had vomiting after meals yesterday. She has not eaten anything today but would like to. She denies any diarrhea or constipation. She does not have any URI symptoms. She denies any vaginal discharge. She does believe that she was exposed to sexually transmitted diseases. She denies any urinary symptoms. Review of Systems: Review of Systems: Complete ROS is negative unless otherwise documented in HPI Allergies: Allergies: Allergies Coded Allergies Type Severity Reaction Last Updated Verified NSAIDS (Non-Steroidal Anti-Inflamma Allergy Intermediate 09/03/18 Yes Penicillins Allergy Intermediate 09/03/18 Yes clindamycin Allergy Intermediate 09/03/18 Yes dextrose Adverse Reaction Intermediate nausea and vomiting 08/10/15 Yes fructose Adverse Reaction Intermediate nausea and vomiting 08/10/15 Yes metronidazole Adverse Reaction Intermediate Nausea and Vomiting 10/03/14 No promethazine Adverse Reaction Intermediate nausea 10/03/14 No Physical Exam: PE: General: Awake, alert, NAD. Well Nourished, well hydrated. Cooperative HEENT: Atraumatic, EOMI, PERRL, airway patent, moist oral mucosa Neck: Supple, trachea midline Respiratory: CTA bilaterally, normal effort, no wheezing/crackles CV: RRR, no murmur, cap refill <2 GI: Soft, nondistended, nontender, no masses MSK: No obvious deformities Skin: Warm, dry, intact Neuro: A&O x3, speech NL, sensory and motor grossly intact, no focal deficits Psych: Bizarre affect, normal mood, not suicidal or homicidal Current Patient Data: Labs: Laboratory Tests Test 07/24/20 18:00 07/24/20 18:10 07/24/20 18:55 Urine Collection Type Unknown Urine Color Yellow Urine Clarity Cloudy Urine pH 7.5 (<5.0-8.0) Urine Specific [place] 1.015 (1.000-1.030) Urine Protein Negative mg/dL (NEG-TRACE) Urine Glucose (UA) Negative mg/dL (NEG) Urine Ketones (Stick) Negative mg/dL (NEG) Urine Blood Negative (NEG) Urine Nitrite Negative (NEG) Urine Bilirubin Negative (NEG) Urine Urobilinogen Dipstick 0.2 mg/dL (0.2 mg/dL) Urine Leukocyte Esterase Trace (NEG) Urine RBC 0 /HPF (0-2) Urine WBC Occ /HPF (0-4) Urine Squamous Epithelial Cells Mod /LPF Urine Amorphous Sediment Present /HPF Urine Bacteria Few /HPF (0-FEW) Urine Mucus Mod /LPF POC Urine HCG, Qualitative Hcg negative (Negative) White Blood Count 4.2 x10^3/uL (4.0-11.0) Red Blood Count 4.57 x10^6/uL (3.50-5.40) Hemoglobin 12.9 g/dL (12.0-15.5) Hematocrit 38.8 % (36.0-47.0) Mean Corpuscular Volume 85 fL (79-100) Mean Corpuscular Hemoglobin 28 pg (25-35) Mean Corpuscular Hemoglobin Concent 33 g/dL (31-37) Red Cell Distribution Width 14.2 % (11.5-14.5) Platelet Count 238 x10^3/uL (140-400) Neutrophils (%) (Auto) 69 % (31-73) Lymphocytes (%) (Auto) 24 % (24-48) Monocytes (%) (Auto) 5 % (0-9) Eosinophils (%) (Auto) 1 % (0-3) Basophils (%) (Auto) 1 % (0-3) Neutrophils # (Auto) 2.9 x10^3/uL (1.8-7.7) Lymphocytes # (Auto) 1.0 x10^3/uL (1.0-4.8) Monocytes # (Auto) 0.2 x10^3/uL (0.0-1.1) Eosinophils # (Auto) 0.0 x10^3/uL (0.0-0.7) Basophils # (Auto) 0.0 x10^3/uL (0.0-0.2) Sodium Level 141 mmol/L (136-145) Potassium Level 3.5 mmol/L (3.5-5.1) Chloride Level 104 mmol/L (98-107) Carbon Dioxide Level 28 mmol/L (21-32) Anion Gap 9 (6-14) Blood Urea Nitrogen 9 mg/dL (7-20) Creatinine 0.6 mg/dL (0.6-1.0) Estimated GFR (Cockcroft-Gault) 137.7 BUN/Creatinine Ratio 15 (6-20) Glucose Level 89 mg/dL (70-99) Calcium Level 9.3 mg/dL (8.5-10.1) Total Bilirubin 0.4 mg/dL (0.2-1.0) Aspartate Amino Transferase (AST) 18 U/L (15-37) Alanine Aminotransferase (ALT) 21 U/L (14-59) Alkaline Phosphatase 73 U/L (46-116) Total Protein 7.7 g/dL (6.4-8.2) Albumin 3.6 g/dL (3.4-5.0) Albumin/Globulin Ratio 0.9 (1.0-1.7) L Lipase 67 U/L (73-393) L Laboratory Tests 07/24/20 18:55 Laboratory Tests 07/24/20 18:55 Vital Signs: Vital Signs Date Time Temp Pulse Resp B/P (MAP) Pulse Ox O2 Delivery O2 Flow Rate FiO2 07/24/20 17:50 97.8 62 16 161/69 (99) 100 Room Air 97.8 EKG: EKG: [] Heart Score: Risk Factors: Risk Factors: DM, Current or recent (<one month) smoker, HTN, HLP, family history of CAD, obesity. Risk Scores: Score 0 - 3: 2.5% MACE over next 6 weeks - Discharge Home Score 4 - 6: 20.3% MACE over next 6 weeks - Admit for Clinical Observation Score 7 - 10: 72.7% MACE over next 6 weeks - Early Invasive Strategies Radiology/Procedures: Radiology/Procedures: [] Course & Med Decision Making: Course & Med Decision Making Pertinent Labs and Imaging studies reviewed. (See chart for details) Patient is a 34-year-old female who presents to the emergency room complaining of abdominal pain. Patient has a nontender abdominal exam. She is very well- appearing. She is afebrile with normal vitals. Abdominal labs were done and are negative other than a mild UTI. Patient will be treated empirically for sex ually transmitted diseases. While azithromycin is no longer recommended given patient's homeless status we will give her azithromycin as well as a prescription as it is unclear whether the patient will fill her prescriptions or not. Patient was able to eat in the emergency room without pain or difficulty. She did not have any vomiting while she was here. Patient's test results and vitals while in the ED were fully reviewed and discussed with the patient. Patient is stable and at this time does not need admission to the hospital. We have discussed strict return precautions and the importance of following up with their Primary Care Physician. Patient stated understanding and was given an o pportunity to ask any questions. Patient is in agreement with plan. Aleah Disclaimer: Aleah Disclaimer: This electronic medical record was generated, in whole or in part, using a voice recognition dictation system. Departure Departure Impression: Primary Impression: Abdominal pain Additional Impression: Contact with and (suspected) exposure to infections with a predominantly sexual mode of transmission Disposition: 01 SD HOME SELF CARE/HOMELESS Condition: IMPROVED Referrals: UNKNOWN PCP NAME (PCP) Patient Instructions: Abdominal Pain, Sexually Transmitted Disease Scripts Doxycycline Hyclate (DOXYCYCLINE HYCLATE) 100 Mg Capsule 1 CAP PO BID, #14 CAP Prov: KYLIE LUCIANO MD 07/24/20 Cephalexin (CEPHALEXIN) 500 Mg Capsule 1 CAP PO BID for 7 Days, #14 CAP Prov: KYLIE LUCIANO MD 07/24/20 Problem Qualifiers KYLIE LUCIANO MD Jul 24, 2020 19:57
[2020-07-24 20:00] VITALS: BP 155/91
[2020-07-24] MEDS ORDERED: AZITHROMYCIN 250 MG TABLET. PO ONE (20:15)
[2020-07-24] MEDS ORDERED: ONDANSETRON ODT 4 MG TAB.RAPDIS. PO ONE (20:15)
[2020-07-24] MEDS ORDERED: cefTRIAXone IM 250 MG VIAL IM ONE (20:15)
== END 2020-07-24 20:51 | disposition home or self-care (01) ==
LOC: ER 16:52
DX: R10.9 Unspecified abdominal pain (principal); R11.2 Nausea with vomiting, unspecified; F17.200 Nicotine dependence, unspecified, uncomplicated; Z98.890 Other specified postprocedural states; Z20.2 Contact with and (suspected) exposure to infections with a predominantly sexual mode of transmission; Z88.0 Allergy status to penicillin; Z88.1 Allergy status to other antibiotic agents; Z88.8 Allergy status to other drugs, medicaments and biological substances
CPT/HCPCS: 80053; 81001; 81025; 83690; 85025; 87491; 87591; 96372; 99283; J0696

== ENCOUNTER 2020-10-02 09:27 | Emergency (ER) | payer MEDICARE ==
[~2020-10-02] VITALS: Ht 157.5 cm; Wt 82.7 kg
[~2020-10-02 09:27] MED LIST changes: +CEPH500C PO; +DOXY100C2 PO
[2020-10-02 09:42] VITALS: BP 184/83
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
[2020-10-02 10:53] LABS: BILIRUBIN,URINE SMALL (NEG); CLARITY,URINE CLEAR; COLOR,URINE AMBER; NITRITE,URINE NEGATIVE (NEG); PROTEIN,URINE NEGATIVE (NEG-TRACE)
[2020-10-02 11:16] LABS: BACTERIA,URINE 0 /HPF (0-FEW); RBC,URINE 0 /HPF (0-2); WBC,URINE 0 /HPF (0-4)
== END 2020-10-02 12:00 | disposition home or self-care (01) ==
LOC: ER 09:27
DX: R51.9 Headache, unspecified (principal); R10.9 Unspecified abdominal pain; F17.200 Nicotine dependence, unspecified, uncomplicated; Z98.890 Other specified postprocedural states; Z88.0 Allergy status to penicillin; Z88.1 Allergy status to other antibiotic agents; Z88.8 Allergy status to other drugs, medicaments and biological substances
CPT/HCPCS: 81001; 81025; 99283

== ENCOUNTER 2021-01-11 16:36 | Emergency (ER) | payer MEDICARE ==
[~2021-01-11] VITALS: Ht 157.5 cm; Wt 81.8 kg
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
[2021-01-11] MEDS ORDERED: AMLO-187 PO (17:51)
[2021-01-11] MEDS ORDERED: CYCL10TA2 PO (17:51)
[2021-01-11] MEDS ORDERED: CYCLOBENZAPRINE 10 MG TABLET. PO ONE (18:30)
[2021-01-11 18:58] VITALS: BP 163/95
== END 2021-01-11 19:05 | disposition home or self-care (01) ==
LOC: ER 16:36
DX: S30.0XXA Contusion of lower back and pelvis, initial encounter (principal); Z76.0 Encounter for issue of repeat prescription; I10 Essential (primary) hypertension; F17.200 Nicotine dependence, unspecified, uncomplicated; Z98.890 Other specified postprocedural states; Z88.6 Allergy status to analgesic agent; Z88.0 Allergy status to penicillin; Z88.8 Allergy status to other drugs, medicaments and biological substances; Z88.1 Allergy status to other antibiotic agents; Y08.89XA Assault by other specified means, initial encounter; Y93.89 Activity, other specified; Y92.89 Other specified places as the place of occurrence of the external cause; Y99.8 Other external cause status
CPT/HCPCS: 99283